=== PATIENT | female | born 1955 | race Caucasian/White ===

== ENCOUNTER 2018-05-16 17:03 | Emergency (ER) | payer BC ==
[~2018-05-16] VITALS: Ht 154.9 cm; Wt 72.0 kg
[2018-05-16] MEDS ORDERED: HYDROcodone/APAP 5/325 TABLET ONE (17:30)
[2018-05-16] MEDS ORDERED: KETOROLAC 30 MG/1 ML ONE (17:30)
[2018-05-16] MEDS ORDERED: HYDROcodone/APAP 5/325 TABLET PO ONE (18:00)
[2018-05-16] MEDS ORDERED: KETOROLAC 30 MG/1 ML IM ONE (18:00)
[2018-05-16 19:06] VITALS: BP 150/90
== END 2018-05-16 19:09 | disposition home or self-care (01) ==
LOC: ED 17:34
DX: K08.89 Other specified disorders of teeth and supporting structures (principal)
CPT/HCPCS: 96372; 99283; J1885